=== PATIENT | female | born 1945 | race African-American/Black ===

== ENCOUNTER 2018-02-24 13:56 | Emergency (ER) | payer MEDICARE, MEDICAID ==
--- NOTE | 2018-02-24 14:38 | EKG REPORT ---
SEVERITY:- BORDERLINE ECG - SINUS RHYTHM PROBABLE LEFT ATRIAL ABNORMALITY BORDERLINE T WAVE ABNORMALITIES : Confirmed by: Soy Garner MD 24-Feb-2018 14:37:28
--- NOTE | 2018-02-24 14:52 | ER Document Report ---
ED Medical Screen (RME) - General Chief Complaint: Chest Pain Stated Complaint: CHEST PAIN Time Seen by Provider: 02/24/18 14:50 Information source: Patient Notes: Patient states she has a history of 2 strokes and for cardiac stents. States she has been having chest pain intermittently since yesterday. She states she is also been previously diagnosed with stage IV lung cancer but has not had any chemo radiation or surgery and was healed by prayer from this. TRAVEL OUTSIDE OF THE [place] IN LAST 30 DAYS: No - Related Data Allergies/Adverse Reactions: Penicillins Allergy (Verified 02/24/18 14:05) Past Medical History Renal/ Medical History: Denies: Hx Peritoneal Dialysis Physical Exam - Vital signs Vitals: Temp Pulse Resp BP Pulse Ox 97.5 F 73 14 146/115 H 98 02/24/18 14:22 02/24/18 14:22 02/24/18 14:22 02/24/18 14:22 02/24/18 14:22 Course - Vital Signs Vital signs: Temp Pulse Resp BP Pulse Ox 97.5 F 73 14 146/115 H 98 02/24/18 14:22 02/24/18 14:22 02/24/18 14:22 02/24/18 14:22 02/24/18 14:22
[2018-02-24 15:50] LABS: ABSOLUTE BASOPHILS # (AUTO) 0.1 10^3/uL (0.0-0.2); ABSOLUTE EOSINOPHILS # (AUTO) 0.2 10^3/uL (0.0-0.6); ABSOLUTE LYMPHOCYTES (AUTO) 2.5 10^3/uL (0.5-4.7); ABSOLUTE MONOCYTES (AUTO) 0.5 10^3/uL (0.1-1.4); ABSOLUTE NEUT (AUTO) 2.8 10^3/uL (1.7-8.2); BASOPHILS % (AUTO) 1.1 % (0-2); EOSINOPHILS % (AUTO) 2.8 % (0-6); HEMATOCRIT 39.5 % (36.0-47.0); HEMOGLOBIN 13.2 g/dL (12.0-15.5); MEAN CORPUSCULAR HEMOGLOBIN 28.3 pg (27.0-33.4); MEAN CORPUSCULAR HGB CONC 33.5 g/dL (32.0-36.0); MEAN CORPUSCULAR VOLUME 85 fl (80-97); MONOCYTES % (AUTO) 7.8 % (3-13); PLATELET COUNT 275 10^3/uL (150-450); RED BLOOD COUNT 4.67 10^6/uL (3.72-5.28); RED CELL DISTRIBUTION WIDTH 14.5 % (11.5-14.0); SEGMENTED NEUTROPHILS % (AUTO) 46.3 % (42-78); TOTAL CELLS COUNTED % (AUTO) 100 %; WHITE BLOOD COUNT 5.9 10^3/uL (4.0-10.5)
--- NOTE | 2018-02-24 16:07 | RADIOLOGY REPORT (SQ) ---
EXAM DESCRIPTION: CHEST PA/LAT COMPLETED DATE/TIME: 02/24/2018 3:53 pm REASON FOR STUDY: cp COMPARISON: None. EXAM PARAMETERS: NUMBER OF VIEWS: two views TECHNIQUE: Digital Frontal and Lateral radiographic views of the chest acquired. RADIATION DOSE: NA LIMITATIONS: none FINDINGS: LUNGS AND PLEURA: No opacities, masses or pneumothorax. No pleural effusion. MEDIASTINUM AND HILAR STRUCTURES: No masses or contour abnormalities. HEART AND VASCULAR STRUCTURES: Heart normal size. No evidence for failure. BONES: No acute findings. HARDWARE: None in the chest. OTHER: No other significant finding. IMPRESSION: NO SIGNIFICANT RADIOGRAPHIC FINDING IN THE CHEST. TECHNICAL DOCUMENTATION: JOB ID: [id number] [employer]- All Rights Reserved Reading location - IP/workstation name: [email or web address]
[2018-02-24 16:18] LABS: ALANINE AMINOTRANSFERASE 31 U/L (9-52); ALBUMIN 4.4 g/dL (3.5-5.0); ALKALINE PHOSPHATASE 73 U/L (38-126); ANION GAP 9 (5-19); ASPARTATE AMINO TRANSFERASE 27 U/L (14-36); BILIRUBIN,DIRECT 0.3 mg/dL (0.0-0.4); BILIRUBIN,TOTAL 0.4 mg/dL (0.2-1.3); BLOOD UREA NITROGEN 16 mg/dL (7-20); CALCIUM 9.7 mg/dL (8.4-10.2); CARBON DIOXIDE 27 mmol/L (22-30); CHLORIDE 103 mmol/L (98-107); GLUCOSE 95 mg/dL (75-110); POTASSIUM 3.9 mmol/L (3.6-5.0); TOTAL PROTEIN 8.2 g/dL (6.3-8.2)
[2018-02-24 16:41] LABS: APPEARANCE,URINE CLEAR; BILIRUBIN,URINE NEGATIVE (NEGATIVE); COLOR,URINE YELLOW; GLUCOSE, URINE NEGATIVE (NEGATIVE); KETONES,URINE NEGATIVE (NEGATIVE); LEUKOCYTE ESTERASE,URINE SMALL (NEGATIVE); NITRITE,URINE NEGATIVE (NEGATIVE); PROTEIN,URINE 30 mg/dL (NEGATIVE); URINE SPECIFIC GRAVITY 1.013; UROBILINOGEN,URINE NEGATIVE mg/dL (<2.0)
--- NOTE | 2018-02-24 19:11 | ER Document Report ---
ED General - General Mode of Arrival: Ambulatory Information source: Patient TRAVEL OUTSIDE OF THE [place] IN LAST 30 DAYS: No <JIMENA HUSSEIN - Last Filed: 02/24/18 19:22> <NYWAI Joaquin - Last Filed: 03/01/18 06:58> - General Chief Complaint: Chest Pain Stated Complaint: CHEST PAIN Time Seen by Provider: 02/24/18 14:50 Notes: Patient is a 72-year-old female with a reported history of lung cancer, 2 strokes, 3 MIs and hypertension presents to the emergency department complaining of chest pain and high blood pressure onset 12 hours ago after arguing with her sister. Patient describes her chest pain as an intermittent stabbing that radiates into the left side of her neck. Patient also states her pain is exacerbated with movement and flexion of her chest muscles. Patient also complains of abdominal pain. Patient denies any shortness of breath or trouble breathing. Patient states that she has recently traveled from [place] to [place] and was on her way back to [place] today. When asked about her lung cancer patient states that she had stage IV lung cancer that was completely cured by prayers and no medications or surgeries. (JIMENA HUSSEIN) - Related Data Allergies/Adverse Reactions: Penicillins Allergy (Verified 02/24/18 14:05) Past Medical History - General Information source: Patient - Social History Smoking Status: Former Smoker - 35 years ago Cigarette use (# per day): No Chew tobacco use (# tins/day): No Smoking Education Provided: No Family History: Reviewed & Not Pertinent Patient has suicidal ideation: No Patient has homicidal ideation: No - Past Medical History Cardiac Medical History: Reports: Hx Congestive Heart Failure Pulmonary Medical History: Reports: Hx Asthma, Hx Bronchitis, Hx COPD, Hx Pneumonia Renal/ Medical History: Reports: Hx Kidney Stones Musculoskeltal Medical History: Reports Hx Arthritis <JIMENA HUSSEIN - Last Filed: 02/24/18 19:22> Review of Systems - Review of Systems Constitutional: No symptoms reported EENT: No symptoms reported Cardiovascular: See HPI, Chest pain Respiratory: No symptoms reported Gastrointestinal: See HPI, Abdominal pain Genitourinary: No symptoms reported Female Genitourinary: No symptoms reported Musculoskeletal: See HPI, Neck pain Skin: No symptoms reported Hematologic/Lymphatic: No symptoms reported Neurological/Psychological: No symptoms reported -: Yes All other systems reviewed and negative <JIMENA HUSSEIN - Last Filed: 02/24/18 19:22> Physical Exam <JIMENA HUSSEIN - Last Filed: 02/24/18 19:22> <WAI ALEJANDRA - Last Filed: 03/01/18 06:58> - Vital signs Vitals: Temp Pulse Resp BP Pulse Ox 97.5 F 73 14 146/115 H 98 02/24/18 14:22 02/24/18 14:22 02/24/18 14:22 02/24/18 14:22 02/24/18 14:22 - Notes Notes: GENERAL: Alert, interacts well. No acute distress. HEAD: Normocephalic, atraumatic. EYES: Pupils equal, round, and reactive to light. Extraocular movements intact. ENT: Oral mucosa moist, tongue midline. NECK: Full range of motion. Supple. Trachea midline. LUNGS: Reproducible chest tenderness to palpation. Clear to auscultation bilaterally, no wheezes, rales, or rhonchi. No respiratory distress. HEART: Regular rate and rhythm. No murmurs, gallops, or rubs. ABDOMEN: Soft, non-tender. Non-distended. Bowel sounds present in all 4 quadrants. EXTREMITIES: Moves all 4 extremities spontaneously. NEUROLOGICAL: Alert and oriented x3. Normal speech. PSYCH: Normal affect, normal mood. SKIN: Warm, dry, normal turgor. No rashes or lesions noted. (JIMENA HUSSEIN) Course - Laboratory Result Diagrams: 02/24/18 15:34 02/24/18 15:22 <JIMENA HUSSEIN - Last Filed: 02/24/18 19:22> - Laboratory Result Diagrams: 02/24/18 15:34 02/24/18 15:22 - Diagnostic Test Radiology reviewed: Reports reviewed - NAD - EKG Interpretation by Me EKG shows normal: Sinus rhythm Rate: Normal Rhythm: NSR - No change from repeat today <NYWAI - Last Filed: 03/01/18 06:58> - Re-evaluation Re-evalutation: 02/24/18 20:48 Patient states she was having argument with sister today while visiting her and seeing intermittent sharp left-sided chest pain that radiates up into the lateral aspect of her neck. However, the pain is reproducible with movement and palpation. Due to patient's history of heart attacks to troponins and 2 EKGs were performed greater than 4 hours apart with no significant changes and within normal limits. All of her lab work was otherwise within normal limits are not concerning. Discussed the patient's findings and need to follow-up with her primary care doctor in 1 week for reevaluation of symptoms are continuing or sooner to emergency department if change in her pain pattern. Patient does have risk factors but her pain again is reproducible now with palpation and movement and just feel this is cardiac in nature. She was noted to have hypertension emergency department and she was instructed to continue take her medications as prescribed. (WAI ALEJANDRA) - Vital Signs Vital signs: Temp Pulse Resp BP Pulse Ox 97.5 F 73 9 L 177/98 H 96 02/24/18 14:22 02/24/18 14:22 02/24/18 21:02 02/24/18 21:02 02/24/18 21:02 - Laboratory Laboratory results interpreted by me: 02/24/18 02/24/18 15:22 15:34 RDW 14.5 H Urine Protein 30 H Ur Leukocyte Esterase SMALL H Discharge <JIMENA HUSSEIN - Last Filed: 02/24/18 19:22> <WAI ALEJANDRA - Last Filed: 03/01/18 06:58> - Discharge Clinical Impression: Chest pain Qualifiers: Chest pain type: unspecified Qualified Code(s): R07.9 - Chest pain, unspecified Condition: Good Disposition: HOME, SELF-CARE Instructions: Chest Wall Pain ([facility]) Additional Instructions: Please use a heating pad as needed for your pain. If symptoms are continuing please follow-up with your primary care physician in 1 week for reevaluation or sooner in the emergency department if symptoms change or worsening Scribe Attestation: 03/01/18 06:58 I personally performed the services described in the documentation, reviewed and edited the documentation which was dictated to the scribe in my presence, and it accurately records my words and actions. (WAI ALEJANDRA) Scribe Documentation - Scribe Written by Lorene:: Lorene Singh, 02/24/2018 19:53 acting as scribe for :: [place] <JIMENA HUSSEIN - Last Filed: 02/24/18 19:22>
[2018-02-24 21:15] VITALS: BP 177/98
--- NOTE | 2018-02-25 07:49 | EKG REPORT ---
SEVERITY:- BORDERLINE ECG - SINUS RHYTHM NONSPECIFIC ST-T CHANGES LATERAL LEADS : Confirmed by: Soy Garner MD 25-Feb-2018 07:48:49
== END 2018-02-24 21:22 | disposition home or self-care (01) ==
LOC: ER 13:56
DX: R07.9 Chest pain, unspecified (principal); I25.2 Old myocardial infarction; Z86.73 Personal history of transient ischemic attack (TIA), and cerebral infarction without residual deficits; Z85.118 Personal history of other malignant neoplasm of bronchus and lung; I10 Essential (primary) hypertension; M54.2 Cervicalgia; R10.9 Unspecified abdominal pain; Z87.891 Personal history of nicotine dependence; J44.9 Chronic obstructive pulmonary disease, unspecified
CPT/HCPCS: 36415; 71046; 80053; 81001; 84484; 85025; 93005; 93010; 99285